=== PATIENT | female | born 1965 | race Caucasian/White ===

== ENCOUNTER 2020-07-22 14:40 | Outpatient (REF) | payer MEDICAID, SELFPAY ==
[2020-07-22 15:41] LABS: Glucose Urine UA NEG (NEG); Leukocyte Esterase Urine NEG (NEG); Nitrite Urine NEG (NEG); Urine Blood NEG (NEG); Urine Ketones NEG (NEG); Urine Protein 1+ MG/DL (NEG-TRACE)
[2020-07-22 15:43] LABS: Appearance Urine CLEAR; Color Urine YELLOW
[2020-07-22 15:52] LABS: Bacteria Urine 1+ /LPF; RBC Urine 0 /HPF (0); Squamous Epithelial Cell Urine 1+ /LPF; WBC Urine 0 /HPF (0-4)
== END 2020-07-22 14:41 | disposition home or self-care (01) ==
LOC: HO.LAB 14:40
PROVIDERS: PCP Family Medicine; Visit Provider Urology
DX: N39.0 Urinary tract infection, site not specified (principal)
CPT/HCPCS: 81001; 87086

== ENCOUNTER → 2021-01-18 14:24 | Outpatient (BNVA) | payer MEDICAID, SELFPAY | PROVIDERS: PCP Family Medicine | DX: N39.0 Urinary tract infection, site not specified (principal) | CPT/HCPCS: 99212 ==

== ENCOUNTER → 2021-01-19 10:26 | Outpatient (BNVA) | payer MEDICAID, SELFPAY | PROVIDERS: PCP Family Medicine; Visit Provider Urology ==

== ENCOUNTER → 2021-04-25 13:53 | Outpatient (BNVA) | payer MEDICAID, SELFPAY | PROVIDERS: PCP Internal Medicine | DX: N39.0 Urinary tract infection, site not specified (principal); Z90.5 Acquired absence of kidney | CPT/HCPCS: 99212 ==

== ENCOUNTER 2021-05-23 10:28 | Outpatient (REF) | payer MEDICAID, SELFPAY ==
--- NOTE | ~2021-05-23 | US_ITS ---
EXAMINATION: US RETROPERITONEAL LIMITED (RENAL ONLY) CLINICAL INFORMATION: Acquired absence of kidney. COMPARISON: CT abdomen and pelvis 09/21/2019. TECHNIQUE: Real-time imaging of the kidneys. FINDINGS: RIGHT KIDNEY: 10.2 x 5.5 x 5.5 cm (SAG x AP x TRV). The kidney is normal in size and echogenicity. The contour of the right kidney appears slightly lobulated. Renal cortical thickness is normal. There are small echogenic foci questionable for tiny stones. No focal parenchymal lesions. No hydronephrosis. LEFT KIDNEY: Surgically absent. US/US renal BI IMPRESSION: Echogenic foci in the right kidney, question representing tiny stones.
== END 2021-05-23 10:29 | disposition home or self-care (01) ==
LOC: HO.US 10:28
DX: N39.0 Urinary tract infection, site not specified (principal); Z90.5 Acquired absence of kidney
CPT/HCPCS: 76775

== ENCOUNTER → 2021-06-26 13:06 | Outpatient (BNVA) | payer MEDICAID, SELFPAY | PROVIDERS: PCP Internal Medicine | DX: Z13.89 Encounter for screening for other disorder (principal) ==

== ENCOUNTER 2022-01-05 14:01 | Outpatient (REF) | payer MEDICAID, SELFPAY ==
--- NOTE | ~2022-01-05 | US_ITS ---
EXAMINATION: US RETROPERITONEAL LIMITED (RENAL ONLY) CLINICAL INFORMATION: Calculus of kidney. COMPARISON: Ultrasound retroperitoneal limited (renal only) 05/23/2021. CT abdomen and pelvis without contrast 09/21/2019. TECHNIQUE: Real-time imaging of the kidneys. FINDINGS: RIGHT KIDNEY: 10.9 x 6.3 x 4.9 cm (SAG x AP x TRV). The kidney is normal in size, contour, and echogenicity. Renal cortical thickness is normal. No focal parenchymal lesions. There is a 5 x 2 mm echogenic focus seen within the midpole which may represent vessel wall artifact versus nonobstructing calculus. LEFT KIDNEY: Surgically absent. US/US renal BI IMPRESSION: Question nonobstructing right renal calculus measuring 5 mm in largest dimension versus vessel interface artifact. No evidence of obstructive uropathy.
== END 2022-01-05 14:02 | disposition home or self-care (01) ==
LOC: HO.US 14:01
DX: N20.0 Calculus of kidney (principal); Z90.5 Acquired absence of kidney
CPT/HCPCS: 76775

== ENCOUNTER 2022-01-23 17:09 | Outpatient (REF) | payer MEDICAID, SELFPAY | END 2022-01-23 17:10 | disposition home or self-care (01) | LOC: HO.LAB 17:09 | PROVIDERS: PCP Family Medicine; Visit Provider Urology | DX: Z13.89 Encounter for screening for other disorder (principal) | CPT/HCPCS: 81001; 87086 ==

== ENCOUNTER 2022-02-01 17:47 | Outpatient (REF) | payer MEDICAID, SELFPAY ==
[2022-02-01 17:55] LABS: Appearance Urine Cloudy; Color Urine Yellow; Glucose Urine UA Negative (Negative); Leukocyte Esterase Urine Negative (Negative); Nitrite Urine Negative (Negative); UMIC TRIGGER UA YES; Urine Blood Negative (Negative); Urine Ketones Negative (Negative); Urine Protein 30 (1+) mg/dL (Neg-Trace)
[2022-02-01 18:06] LABS: Bacteria Urine None Seen (None Seen); Hyaline Casts Urine 0-2 /LPF (0-2); RBC Urine 0-2 /HPF (0-2); Squamous Epithelial Cell Urine >20 /HPF (0-2); WBC Urine 0-5 /HPF (0-5)
== END 2022-02-01 17:48 | disposition home or self-care (01) ==
LOC: HO.LNP 17:47
PROVIDERS: Visit Provider Urology
DX: N39.0 Urinary tract infection, site not specified (principal)
CPT/HCPCS: 81001; 87086

== ENCOUNTER 2022-03-09 | Outpatient (REF) | payer MEDICAID, SELFPAY ==
[2022-03-09 17:39] LABS: Appearance Urine Clear; Color Urine Yellow; Glucose Urine UA Negative (Negative); Leukocyte Esterase Urine Trace (Negative); Nitrite Urine Negative (Negative); PH 6.5 (5.0-9.0); Specific Gravity - Urine 1.015 (1.005-1.025); UMIC TRIGGER UA YES; Urine Blood Negative (Negative); Urine Ketones Negative (Negative); Urine Protein 30 (1+) mg/dL (Neg-Trace)
[2022-03-09 17:41] LABS: Bacteria Urine 3+ (None Seen); Hyaline Casts Urine 0-2 /LPF (0-2); RBC Urine 0-2 /HPF (0-2); WBC Urine 0-5 /HPF (0-5)
== END 2022-03-09 00:01 | disposition home or self-care (01) ==
LOC: HO.LNP
PROVIDERS: Visit Provider Urology
DX: N39.0 Urinary tract infection, site not specified (principal)
CPT/HCPCS: 81001; 87086; 87088; 87186

== ENCOUNTER → 2022-03-27 13:41 | Outpatient (BNVA) | payer MEDICAID, SELFPAY | PROVIDERS: PCP Family Medicine; Visit Provider Urology | DX: Z13.89 Encounter for screening for other disorder (principal) ==

== ENCOUNTER → 2022-04-10 13:38 | Outpatient (BNVA) | payer MEDICAID, SELFPAY | PROVIDERS: PCP Family Medicine; Visit Provider Urology | DX: Z13.89 Encounter for screening for other disorder (principal) ==

== ENCOUNTER 2022-04-18 11:05 | Outpatient (REF) | payer MEDICAID, SELFPAY | END 2022-04-18 11:06 | disposition home or self-care (01) | LOC: HO.LAB 11:05 | PROVIDERS: Absent Provider Urology; PCP Family Medicine; Visit Provider Internal Medicine | DX: A49.9 Bacterial infection, unspecified (principal); N39.0 Urinary tract infection, site not specified; Z16.12 Extended spectrum beta lactamase (ESBL) resistance | CPT/HCPCS: 87086; 87088; 87186; 99202 ==

== ENCOUNTER 2022-04-30 12:41 | Emergency (ER) | payer MEDICAID, SELFPAY ==
[2022-04-30 12:49] VITALS: BP 161/112; PULSE 110; RESP 18; TEMP 37; O2SAT 98; BMI 32.9
--- NOTE | 2022-04-30 12:50 | ECG_ITS ---
Test Reason : TACHYCARDIA Blood Pressure : / mmHG Vent. Rate : 100 BPM Atrial Rate : 100 BPM P-R Int : 124 ms QRS Dur : 080 ms QT Int : 338 ms P-R-T Axes : 025 -12 003 degrees QTc Int : 436 ms Normal sinus rhythm Minimal voltage criteria for LVH, may be normal variant ( R in aVL ) Borderline ECG No previous ECGs available Referred By: Amy Jones Electronically Signed By:LAITH TELLO MD
--- NOTE | 2022-04-30 12:51 | ED.FEMALEGU ---
HPI - Female Genitourinary General Chief complaint: General Medical <LAINEY Perez - Last Filed: 04/30/22 12:56> Stated complaint: kidney infection <LAINEY Perez - Last Filed: 04/30/22 12:56> Time Seen by Provider: 04/30/22 18:29 <LAINEY Perez - Last Filed: 04/30/22 12:56> Source: patient <Tyra García MD - Last Filed: 04/30/22 22:05> Mode of arrival: ambulatory <Tyra García MD - Last Filed: 04/30/22 22:05> History of Present Illness HPI Narrative: 56-year-old female with history of 1 kidney and reports that she was diagnosed with a kidney infection approximately 2 weeks ago and had been directed by Urology as well as Infectious Disease specialist to follow-up here in the hospital for IV antibiotics but patient states that she was unable to make the appointment due to a car breakdown. She now states that she is presenting for the antibiotics but otherwise denies any fever, chills. <Tyra García MD - Last Filed: 04/30/22 22:05> Related Data Home medications: Home Medications Medication Instructions Recorded Confirmed amlodipine 5 mg tablet 5 mg PO DAILY 01/18/21 conj estrogen-medroxyprogesterone 1 tab PO DAILY 01/18/21 0.625 mg-2.5 mg tablet (Prempro) dextroamphetamine-amphetamine 20 1 tab PO BID 01/18/21 mg tablet fluticasone propionate 50 1 spray intranasal DAILY 01/18/21 mcg/actuation nasal spray,suspension paroxetine HCl 40 mg tablet 40 mg PO DAILY 01/18/21 hydroxychloroquine 200 mg tablet 200 mg PO BID 04/25/21 lidocaine 5 % topical patch 2 patch topical 04/25/21 oxycodone 10 mg tablet 10 mg PO TID 04/25/21 paroxetine HCl 30 mg tablet 60 mg PO DAILY 04/25/21 cholecalciferol (vitamin D3) 25 25 mcg PO DAILY 06/26/21 mcg (1,000 unit) capsule colchicine 0.6 mg tablet 0.6 mg PO DAILY 06/26/21 lisinopril 20 mg tablet 20 mg PO DAILY 06/26/21 omeprazole 20 mg capsule,delayed 20 mg PO BID 06/26/21 release pravastatin 40 mg tablet 40 mg PO DAILY 06/26/21 sodium bicarbonate 650 mg tablet 0 mg PO BID 06/26/21 trazodone 50 mg tablet 0 mg PO 06/26/21 Previous Rx's Medication Instructions Recorded ondansetron HCl 4 mg tablet 4 mg PO Q8H 5 days #15 tabs 01/26/20 (Zofran) ondansetron HCl 4 mg tablet 4 mg PO Q8H PRN nausea and 06/10/20 (Zofran) vomiting #6 tabs amoxicillin 875 mg-potassium 1 tab PO TID 6 days #18 tabs 02/27/22 clavulanate 125 mg tablet fosfomycin tromethamine 3 gram 1 packet PO Q3D 2 doses #2 ea 03/12/22 oral packet fosfomycin tromethamine 3 gram 3 g PO Q2D 12 days #6 packets 03/27/22 oral packet fosfomycin tromethamine 3 gram 1 packet PO ONCE 1 day #1 ea 04/30/22 oral packet <LAINEY Perez - Last Filed: 04/30/22 12:56> Allergies/Adverse reactions: Allergies Allergy/AdvReac Type Severity Reaction Status Date / Time methadone [METHADONE] Allergy Unknown RASH Verified 04/30/22 20:44 pentazocine [From [facility]ALWIN] AdvReac Unknown N/V Verified 04/30/22 20:44 1-Step Allergy Unknown Unknown Uncoded 04/18/22 11:23 <LAINEY Perez - Last Filed: 04/30/22 12:56> Review of Systems Review of Systems: Pertinent positives and negatives as stated in HPI <Tyra García MD - Last Filed: 04/30/22 22:05> PMFSH Past Medical History Source: nursing notes reviewed <Tyra García MD - Last Filed: 04/30/22 22:05> Medical History: Medical History Fibromyalgia Hypertension Renal calculi Solitary kidney, acquired <LAINEY Perez - Last Filed: 04/30/22 12:56> Social History Social History: Social History Alcohol intake: never Smoked in Last 30 Days: No Use of substances other than those prescribed or required for medical reasons: No Advance Directives: No Advance Directives Information Provided: Yes Patient : No <LAINEY Perez - Last Filed: 04/30/22 12:56> Physical Exam Vital Signs: Vital Signs: Last Vital Signs Temp 98.4 F 04/30/22 20:36 Pulse 100 04/30/22 20:27 Resp 17 04/30/22 20:27 BP 170/96 H 04/30/22 20:27 Pulse Ox 100 04/30/22 20:27 O2 Del Method 04/30/22 20:27 BMI result Body Mass Index 32.9 <LAINEY Perez - Last Filed: 04/30/22 12:56> Vital Signs: Last Vital Signs Temp 98.4 F 04/30/22 20:36 Pulse 100 04/30/22 20:27 Resp 17 04/30/22 20:27 BP 170/96 H 04/30/22 20:27 Pulse Ox 100 04/30/22 20:27 O2 Del Method 04/30/22 20:27 BMI result Body Mass Index 32.9 VITAL SIGNS: Reviewed. GENERAL: Well developed, well nourished, in no acute distress. HEAD: Normocephalic/atraumatic EYES: PERRLA, EOMI LUNGS: Normal breath sounds. No adventitious sounds or accessory muscle use. SpO2<100> CARDIOVASCULAR: Regular rate and rhythm without noted murmurs ABDOMEN: Soft, non-tender, non-distended with bowel sounds. MUSCULOSKELETAL: No tenderness, deformities, or effusions noted on gross inspection. EXTREMITIES: No cyanosis, clubbing or edema. SKIN: Inspection of the skin reveals no rashes NEUROLOGIC: Alert and oriented x 4. Strength and sensation to light touch were grossly intact x 4. <Tyra García MD - Last Filed: 04/30/22 22:05> Course Course Course Narrative: RME - 56 yo F, hx of ESBL E.coli on 04/18 sensitive only to ertapenem and gentamicin with solitary kidney, mcc UTIs with resistant organisms, hypertension, and renal calculi, presenting today with complaints of ongoing UTI infection. She has been followed by Dr. Andre, but has been unable to get antibiotics due to transportation problems. Patient is tachycardic to the 120s but is afebrile. Plan:Labs ordered. Patient is stable to return to the waiting room until treatment room becomes available. <LAINEY Perez - Last Filed: 04/30/22 12:56> Medications Administered Generic Name Dose Route Start Last Admin Trade Name Freq PRN Reason Stop Dose Admin Sodium Chloride 2,000 mls @ 999 mls/hr 04/30/22 20:30 04/30/22 20:53 Ns IV 04/30/22 22:30 999 mls/hr .Q2H1M JENNY Administration Discontinued Medications Generic Name Dose Route Start Last Admin Trade Name Freq PRN Reason Stop Dose Admin Ertapenem 1 gm/ Sodium 50 mls @ 100 mls/hr 04/30/22 20:40 04/30/22 21:48 Chloride IV 04/30/22 21:09 Infused ONCE ONE Infusion <LAINEY Perez - Last Filed: 04/30/22 12:56> Medications Administered Generic Name Dose Route Start Last Admin Trade Name Freq PRN Reason Stop Dose Admin Sodium Chloride 2,000 mls @ 999 mls/hr 04/30/22 20:30 04/30/22 20:53 Ns IV 04/30/22 22:30 999 mls/hr .Q2H1M JENNY Administration Discontinued Medications Generic Name Dose Route Start Last Admin Trade Name Freq PRN Reason Stop Dose Admin Ertapenem 1 gm/ Sodium 50 mls @ 100 mls/hr 04/30/22 20:40 04/30/22 21:48 Chloride IV 04/30/22 21:09 Infused ONCE ONE Infusion <Tyra García MD - Last Filed: 04/30/22 22:05> Medical Decision Making Medical Decision Making MDM Narrative: This is a 56-year-old female who presents for IV antibiotics, I reviewed her documentation both by Dr. Desouza as well as the infectious disease specialist, Dr Dahl. The latter specialist has recommended that patient should be treated with fosfomycin and that she can follow-up as outpatient as long she is afebrile. I reviewed all investigations and my interpretation is that this patient has COVID-19, she did receive 1 dose of ertapenem as the urinary tract infection sensitivities on review of microbiology results indicated that there was sensitivity to the ertapenem. Patient will be discharged with the fosfomycin to take at home and provided with referrals to follow-up with Dr. Desouza. Patient is otherwise afebrile, comfortable and appears well. <Tyra García MD - Last Filed: 04/30/22 22:05> Differential Diagnosis Please see the discussion above <Tyra García MD - Last Filed: 04/30/22 22:05> Consult Healthcare Provider Management of the patient was discussed with: Multiple Spindle Router Operator <Tyra García MD - Last Filed: 04/30/22 22:05> 2155: I discussed the case extensively with Dr Dahl, who recommends fosfomycin and outpatient follow-up. <Tyra García MD - Last Filed: 04/30/22 22:05> Lab Data Please see the discussion above <Tyra García MD - Last Filed: 04/30/22 22:05> Result Diagrams: 04/30/22 13:21 04/30/22 13:21 <LAINEY Perez - Last Filed: 04/30/22 12:56> Labs: Lab Results 04/30/22 04/30/22 04/30/22 Range/Units 13:21 13:21 13:21 WBC 5.3 (4.8-10.8) X10*3/uL RBC 3.48 L (4.20-5.50) X10*6/uL Hgb 10.8 L (12.0-16.0) g/dl Hct 32.7 L (37.0-47.0) % MCV 94.0 (80.0-98.0) fL MCH 31.0 (27.0-33.0) pg MCHC 33.0 (31.0-35.0) g/dl RDW 14.6 (11.0-16.0) % Plt Count 289 (160-400) X10*3/uL MPV 10.7 (9.4-12.3) fL Immature Gran % (Auto) 0.2 (0.0-0.4) % Neut % (Auto) 58.6 (45-73) % Lymph % (Auto) 28.2 (20-40) % [place] % (Auto) 11.1 H (2-11) % Eos % (Auto) 1.7 (0-4) % Baso % (Auto) 0.2 (0-2) % Lymph # (Auto) 1.5 (1.2-4.9) X10*3/uL [place] # (Auto) 0.6 (0.1-1.2) X10*3/uL Eos # (Auto) 0.1 (0.0-0.4) X10*3/uL Baso # (Auto) 0.0 (0.0-0.2) X10*3/uL Abs Immat Gran (auto) 0.01 (0.00-0.03) X10*3/uL Absolute Neuts (auto) 3.1 (2.0-8.3) x10*3/uL Absolute Nucleated RBC 0.000 (0.0-0.012) X10*3/uL Nucleated RBC % (auto) 0.0 (0.0-0.2) /100WBC Sodium 138 (135-145) mmol/L Potassium 5.0 (3.3-5.1) mmol/L Chloride 108 (96-108) mmol/L Carbon Dioxide 20 L (22-29) mmol/L Anion Gap 15 (12-20) BUN 24 H (9-16) mg/dL Creatinine 1.62 H (0.5-1.4) mg/dL Estim Creat Clear Calc 37.4 Estimated GFR 33 Random Glucose 96 (60-115) mg/dL Lactic Acid 2.0 (0.5-2.0) mmol/L Calcium 9.3 (8.4-10.2) mg/dL Magnesium 1.4 L* (1.6-2.6) mg/dL Total Bilirubin 0.5 (0.0-1.0) mg/dL Direct Bilirubin 0.2 (0.0-0.5) mg/dL AST 74 H (5-31) U/L ALT 58 H (0-31) U/L Alkaline Phosphatase 105 (39-117) U/L Total Protein 8.6 H (6.5-8.0) g/dL Albumin 4.5 (3.5-5.0) g/dL Urine Color Urine Appearance Urine pH (5.0-9.0) Ur Specific [place] (1.005-1.025) Urine Protein (Neg-Trace) mg/dL Urine Glucose (UA) (Negative) mg/dL Urine Ketones (Negative) mg/dL Urine Blood (Negative) Urine Nitrite (Negative) Ur Leukocyte Esterase (Negative) Urine RBC (0-2) /HPF Urine WBC (0-5) /HPF Ur Squamous Epith Cells (0-2) /HPF Urine Bacteria (None Seen) Hyaline Casts (0-2) /LPF COVID-19 (ELENA) (Negative) COVID-19 Clin Com 04/30/22 04/30/22 04/30/22 Range/Units 13:21 20:30 20:31 WBC (4.8-10.8) X10*3/uL RBC (4.20-5.50) X10*6/uL Hgb (12.0-16.0) g/dl Hct (37.0-47.0) % MCV (80.0-98.0) fL MCH (27.0-33.0) pg MCHC (31.0-35.0) g/dl RDW (11.0-16.0) % Plt Count (160-400) X10*3/uL MPV (9.4-12.3) fL Immature Gran % (Auto) (0.0-0.4) % Neut % (Auto) (45-73) % Lymph % (Auto) (20-40) % [place] % (Auto) (2-11) % Eos % (Auto) (0-4) % Baso % (Auto) (0-2) % Lymph # (Auto) (1.2-4.9) X10*3/uL [place] # (Auto) (0.1-1.2) X10*3/uL Eos # (Auto) (0.0-0.4) X10*3/uL Baso # (Auto) (0.0-0.2) X10*3/uL Abs Immat Gran (auto) (0.00-0.03) X10*3/uL Absolute Neuts (auto) (2.0-8.3) x10*3/uL Absolute Nucleated RBC (0.0-0.012) X10*3/uL Nucleated RBC % (auto) (0.0-0.2) /100WBC Sodium (135-145) mmol/L Potassium (3.3-5.1) mmol/L Chloride (96-108) mmol/L Carbon Dioxide (22-29) mmol/L Anion Gap (12-20) BUN (9-16) mg/dL Creatinine (0.5-1.4) mg/dL Estim Creat Clear Calc Estimated GFR Random Glucose (60-115) mg/dL Lactic Acid 1.6 (0.5-2.0) mmol/L Calcium (8.4-10.2) mg/dL Magnesium (1.6-2.6) mg/dL Total Bilirubin (0.0-1.0) mg/dL Direct Bilirubin (0.0-0.5) mg/dL AST (5-31) U/L ALT (0-31) U/L Alkaline Phosphatase (39-117) U/L Total Protein (6.5-8.0) g/dL Albumin (3.5-5.0) g/dL Urine Color Yellow Urine Appearance Cloudy Urine pH 6.0 (5.0-9.0) Ur Specific [place] 1.020 (1.005-1.025) Urine Protein >=1000 (4+) H (Neg-Trace) mg/dL Urine Glucose (UA) Negative (Negative) mg/dL Urine Ketones Negative (Negative) mg/dL Urine Blood Small (1+) H (Negative) Urine Nitrite Negative (Negative) Ur Leukocyte Esterase Moderate (2+) H (Negative) Urine RBC 0-2 (0-2) /HPF Urine WBC >50 H (0-5) /HPF Ur Squamous Epith Cells 0-2 (0-2) /HPF Urine Bacteria 4+ (None Seen) Hyaline Casts 0-2 (0-2) /LPF COVID-19 (ELENA) Positive A (Negative) COVID-19 Clin Com See Note <LAINEY Perez - Last Filed: 04/30/22 12:56> Lab Results 04/30/22 04/30/22 04/30/22 Range/Units 13:21 13:21 13:21 WBC 5.3 (4.8-10.8) X10*3/uL RBC 3.48 L (4.20-5.50) X10*6/uL Hgb 10.8 L (12.0-16.0) g/dl Hct 32.7 L (37.0-47.0) % MCV 94.0 (80.0-98.0) fL MCH 31.0 (27.0-33.0) pg MCHC 33.0 (31.0-35.0) g/dl RDW 14.6 (11.0-16.0) % Plt Count 289 (160-400) X10*3/uL MPV 10.7 (9.4-12.3) fL Immature Gran % (Auto) 0.2 (0.0-0.4) % Neut % (Auto) 58.6 (45-73) % Lymph % (Auto) 28.2 (20-40) % [place] % (Auto) 11.1 H (2-11) % Eos % (Auto) 1.7 (0-4) % Baso % (Auto) 0.2 (0-2) % Lymph # (Auto) 1.5 (1.2-4.9) X10*3/uL [place] # (Auto) 0.6 (0.1-1.2) X10*3/uL Eos # (Auto) 0.1 (0.0-0.4) X10*3/uL Baso # (Auto) 0.0 (0.0-0.2) X10*3/uL Abs Immat Gran (auto) 0.01 (0.00-0.03) X10*3/uL Absolute Neuts (auto) 3.1 (2.0-8.3) x10*3/uL Absolute Nucleated RBC 0.000 (0.0-0.012) X10*3/uL Nucleated RBC % (auto) 0.0 (0.0-0.2) /100WBC Sodium 138 (135-145) mmol/L Potassium 5.0 (3.3-5.1) mmol/L Chloride 108 (96-108) mmol/L Carbon Dioxide 20 L (22-29) mmol/L Anion Gap 15 (12-20) BUN 24 H (9-16) mg/dL Creatinine 1.62 H (0.5-1.4) mg/dL Estim Creat Clear Calc 37.4 Estimated GFR 33 Random Glucose 96 (60-115) mg/dL Lactic Acid 2.0 (0.5-2.0) mmol/L Calcium 9.3 (8.4-10.2) mg/dL Magnesium 1.4 L* (1.6-2.6) mg/dL Total Bilirubin 0.5 (0.0-1.0) mg/dL Direct Bilirubin 0.2 (0.0-0.5) mg/dL AST 74 H (5-31) U/L ALT 58 H (0-31) U/L Alkaline Phosphatase 105 (39-117) U/L Total Protein 8.6 H (6.5-8.0) g/dL Albumin 4.5 (3.5-5.0) g/dL Urine Color Urine Appearance Urine pH (5.0-9.0) Ur Specific [place] (1.005-1.025) Urine Protein (Neg-Trace) mg/dL Urine Glucose (UA) (Negative) mg/dL Urine Ketones (Negative) mg/dL Urine Blood (Negative) Urine Nitrite (Negative) Ur Leukocyte Esterase (Negative) Urine RBC (0-2) /HPF Urine WBC (0-5) /HPF Ur Squamous Epith Cells (0-2) /HPF Urine Bacteria (None Seen) Hyaline Casts (0-2) /LPF COVID-19 (ELENA) (Negative) COVID-19 Clin Com 04/30/22 04/30/22 04/30/22 Range/Units 13:21 20:30 20:31 WBC (4.8-10.8) X10*3/uL RBC (4.20-5.50) X10*6/uL Hgb (12.0-16.0) g/dl Hct (37.0-47.0) % MCV (80.0-98.0) fL MCH (27.0-33.0) pg MCHC (31.0-35.0) g/dl RDW (11.0-16.0) % Plt Count (160-400) X10*3/uL MPV (9.4-12.3) fL Immature Gran % (Auto) (0.0-0.4) % Neut % (Auto) (45-73) % Lymph % (Auto) (20-40) % [place] % (Auto) (2-11) % Eos % (Auto) (0-4) % Baso % (Auto) (0-2) % Lymph # (Auto) (1.2-4.9) X10*3/uL [place] # (Auto) (0.1-1.2) X10*3/uL Eos # (Auto) (0.0-0.4) X10*3/uL Baso # (Auto) (0.0-0.2) X10*3/uL Abs Immat Gran (auto) (0.00-0.03) X10*3/uL Absolute Neuts (auto) (2.0-8.3) x10*3/uL Absolute Nucleated RBC (0.0-0.012) X10*3/uL Nucleated RBC % (auto) (0.0-0.2) /100WBC Sodium (135-145) mmol/L Potassium (3.3-5.1) mmol/L Chloride (96-108) mmol/L Carbon Dioxide (22-29) mmol/L Anion Gap (12-20) BUN (9-16) mg/dL Creatinine (0.5-1.4) mg/dL Estim Creat Clear Calc Estimated GFR Random Glucose (60-115) mg/dL Lactic Acid 1.6 (0.5-2.0) mmol/L Calcium (8.4-10.2) mg/dL Magnesium (1.6-2.6) mg/dL Total Bilirubin (0.0-1.0) mg/dL Direct Bilirubin (0.0-0.5) mg/dL AST (5-31) U/L ALT (0-31) U/L Alkaline Phosphatase (39-117) U/L Total Protein (6.5-8.0) g/dL Albumin (3.5-5.0) g/dL Urine Color Yellow Urine Appearance Cloudy Urine pH 6.0 (5.0-9.0) Ur Specific [place] 1.020 (1.005-1.025) Urine Protein >=1000 (4+) H (Neg-Trace) mg/dL Urine Glucose (UA) Negative (Negative) mg/dL Urine Ketones Negative (Negative) mg/dL Urine Blood Small (1+) H (Negative) Urine Nitrite Negative (Negative) Ur Leukocyte Esterase Moderate (2+) H (Negative) Urine RBC 0-2 (0-2) /HPF Urine WBC >50 H (0-5) /HPF Ur Squamous Epith Cells 0-2 (0-2) /HPF Urine Bacteria 4+ (None Seen) Hyaline Casts 0-2 (0-2) /LPF COVID-19 (ELENA) Positive A (Negative) COVID-19 Clin Com See Note <Tyra García MD - Last Filed: 04/30/22 22:05> Independent Interpretation I performed an independent interpretation of an: EKG <Tyra García MD - Last Filed: 04/30/22 22:05> Interpretation: Normal sinus rhythm, HR-100, no STEMI, KS/QRS/QTC are within normal limits. <Tyra García MD - Last Filed: 04/30/22 22:05> Chronic Conditions Patient?s care impacted by: Other <Tyra García MD - Last Filed: 04/30/22 22:05> One kidney, <Tyra García MD - Last Filed: 04/30/22 22:05> Discharge Plan Discharge Clinical Impression: ESBL (extended spectrum beta-lactamase) producing bacteria infection, Lab test positive for detection of COVID-19 virus <LAINEY Perez - Last Filed: 04/30/22 12:56> Patient Disposition: Home, Self-Care <LAINEY Perez - Last Filed: 04/30/22 12:56> Instructions: Urinary Tract Infection in Women (ED), COVID-19 (Coronavirus Disease 2019) (ED) <LAINEY Perez - Last Filed: 04/30/22 12:56> Additional Instructions: 1. You have been provided with a prescription for fosfomycin and should take this medication. It is a 1 time dose. 2. You have been provided with referrals to both the infectious disease specialist as well as Dr. Andre your urologist. You have been diagnosed with COVID-19 and must isolate for the next 5 days. This does not prevent you from interacting with your physicians through telemedicine appointments. Return for any worsening of symptoms. <LAINEY Perez - Last Filed: 04/30/22 12:56> Prescriptions: New fosfomycin tromethamine 3 gram packet 1 packet PO ONCE 1 Days Qty: 1 0RF No Action ondansetron HCl [Zofran] 4 mg tablet 4 mg PO Q8H 5 Days Qty: 15 0RF ondansetron HCl [Zofran] 4 mg tablet 4 mg PO Q8H PRN (Reason: nausea and vomiting) Qty: 6 0RF amoxicillin-pot clavulanate 875-125 mg tablet 1 tab PO TID 6 Days Qty: 18 0RF fosfomycin tromethamine 3 gram packet 1 packet PO Q3D Qty: 2 1RF fosfomycin tromethamine 3 gram packet 3 g PO Q2D 12 Days Qty: 6 0RF Rx Instructions: Take one packet every 2 days mixed with water for 6 doses dextroamphetamine-amphetamine 20 mg tablet 1 tab PO BID Prempro 0.625-2.5 mg tablet 1 tab PO DAILY fluticasone propionate 50 mcg/actuation spray,suspension 1 spray intranasal DAILY amlodipine 5 mg tablet 5 mg PO DAILY paroxetine HCl 40 mg tablet 40 mg PO DAILY oxycodone 10 mg tablet 10 mg PO TID hydroxychloroquine 200 mg tablet 200 mg PO BID paroxetine HCl 30 mg tablet 60 mg PO DAILY lidocaine 5 % adhesive patch,medicated 2 patch topical trazodone 50 mg tablet 0 mg PO pravastatin 40 mg tablet 40 mg PO DAILY lisinopril 20 mg tablet 20 mg PO DAILY sodium bicarbonate 650 mg tablet 0 mg PO BID omeprazole 20 mg capsule,delayed release(DR/EC) 20 mg PO BID colchicine 0.6 mg tablet 0.6 mg PO DAILY cholecalciferol (vitamin D3) 25 mcg (1,000 unit) capsule 25 mcg PO DAILY <LAINEY Perez - Last Filed: 04/30/22 12:56> Referrals: Katie Dahl MD [Physician] - Danisha Erazo MD [Primary Care Provider] - Mac Desouza MD [Physician] - <LAINEY Perez - Last Filed: 04/30/22 12:56>
[2022-04-30 13:26] LABS: MANUAL DIFF FLAG NO
[2022-04-30 13:28] LABS: Basophils Percent Auto 0.2 % (0-2); Eosinophils Absolute Auto 0.1 X10*3/uL (0.0-0.4); Eosinophils Percent Auto 1.7 % (0-4); Hematocrit 32.7 % (37.0-47.0); Hemoglobin 10.8 g/dl (12.0-16.0); Imm Gran Abs Auto 0.01 X10*3/uL (0.00-0.03); Imm Gran Pct Auto 0.2 % (0.0-0.4); Lymphocytes Absolute Auto 1.5 X10*3/uL (1.2-4.9); Lymphocytes Percent Auto 28.2 % (20-40); Mean Platelet Volume 10.7 fL (9.4-12.3); Monocytes Absolute Auto 0.6 X10*3/uL (0.1-1.2); Monocytes Percent Auto 11.1 % (2-11); Neutrophils Absolute Auto 3.1 x10*3/uL (2.0-8.3); Neutrophils Percent Auto 58.6 % (45-73); Platelet Count 289 X10*3/uL (160-400); Red Blood Count 3.48 X10*6/uL (4.20-5.50); Red Cell Distribution Width 14.6 % (11.0-16.0); White Blood Count 5.3 X10*3/uL (4.8-10.8)
[2022-04-30 13:42] LABS: COVID-19 Test Positive (Negative); IDNOW Serial# BCCEAD1C
[2022-04-30 13:47] LABS: Alanine Aminotransferase 58 U/L (0-31); Albumin Level 4.5 g/dL (3.5-5.0); Alkaline Phosphatase 105 U/L (39-117); Anion Gap 15 (12-20); Aspartate Amino Transferase 74 U/L (5-31); Bilirubin Direct 0.2 mg/dL (0.0-0.5); Bilirubin Total 0.5 mg/dL (0.0-1.0); Blood Urea Nitrogen 24 mg/dL (9-16); Calcium 9.3 mg/dL (8.4-10.2); Carbon Dioxide 20 mmol/L (22-29); Chloride 108 mmol/L (96-108); Creatinine Clr Calc Pharmacy 37.4; Estimated Glomerular Filt Rate 33; Glucose Random 96 mg/dL (60-115); Magnesium 1.4 mg/dL (1.6-2.6); Sodium 138 mmol/L (135-145); Total Protein 8.6 g/dL (6.5-8.0)
[2022-04-30 20:27] VITALS: BP 170/96; PULSE 100; RESP 17; O2SAT 100
[2022-04-30 20:36] VITALS: TEMP 36.9
[2022-04-30 20:42] LABS: Appearance Urine Cloudy; Color Urine Yellow; Glucose Urine UA Negative (Negative); Leukocyte Esterase Urine Moderate (2+) (Negative); Nitrite Urine Negative (Negative); UMIC TRIGGER UACC YES; Urine Blood Small (1+) (Negative); Urine Ketones Negative (Negative); Urine Protein >=1000 (4+) mg/dL (Neg-Trace)
[2022-04-30] MEDS: Ertapenem Sodium 1 GM in 0.9 % Sodium Chloride 50 ML IV (20:50)
[2022-04-30] MEDS: 0.9 % Sodium Chloride 2,000 ML 999 ML IV (20:53)
--- NOTE | 2022-04-30 20:56 | PC.NURSE ---
This fiction and nonfiction prose writer assumed care of this Pt at 1900. Pt A&Ox4, reports 10/10 chronic all over body pain, N/D. IV line placed, blood cultures collected and sent to lab, urine sample collected and sent to lab, meds given as documented.
[2022-04-30 20:59] LABS: Bacteria Urine 4+ (None Seen); Hyaline Casts Urine 0-2 /LPF (0-2); RBC Urine 0-2 /HPF (0-2); Squamous Epithelial Cell Urine 0-2 /HPF (0-2); UACC Culture Trigger YES; WBC Urine >50 /HPF (0-5)
[2022-04-30 21:12] LABS: Lactic Acid 1.6 mmol/L (0.5-2.0)
[2022-04-30] MEDS: ondansetron HCL 4 MG/2 ML VIAL IVPUSH (22:02)
== END 2022-04-30 22:18 | disposition home or self-care (01) ==
PROVIDERS: Physician Assistant; Emergency Provider Student in an Organized Health Care Education/Training Program; PCP Family Medicine
DX: U07.1 COVID-19 (principal); N39.0 Urinary tract infection, site not specified; A49.9 Bacterial infection, unspecified; Z90.5 Acquired absence of kidney; Z79.899 Other long term (current) drug therapy
CPT/HCPCS: 36415; 80048; 80076; 81001; 83605; 83735; 85025; 87040; 87086; 87088; 87186; 87635; 93005; 96365; 99285; J1335; J2405

== ENCOUNTER → 2022-05-02 11:02 | Outpatient (BNVA) | payer MEDICAID, SELFPAY | PROVIDERS: PCP Family Medicine; Visit Provider Urology | DX: Z13.89 Encounter for screening for other disorder (principal) ==

== ENCOUNTER 2022-09-18 13:56 | Emergency (ER) | payer MEDICAID, SELFPAY ==
[2022-09-18 14:04] VITALS: BP 133/80; BP 134/92; PULSE 104; PULSE 95; RESP 18; TEMP 36.9; O2SAT 96; O2SAT 98; BMI 29.0
--- NOTE | 2022-09-18 15:37 | ED_ITS ---
HPI - Overdose General Chief Complaint: Overdose Stated Complaint: overdose on rx oxycodone, narcan given Time Seen by Provider: 09/18/22 14:43 Source: patient and family Mode of arrival: EMS History of Present Illness HPI Narrative: 57-year-old female who has a chronic oxycodone user, has been trialed on Suboxone to wean her off the oxycodone but patient reports she is allergic to both methadone as well as Suboxone at this time and is upset that she is not being given more oxycodone for her fibromyalgia. Patient states that she took a pill that was offered from a friend and was noted to be unresponsive by EMS requiring is bag mask valve ventilation and received 1 mg of IV Narcan. Patient denies suicidal or homicidal ideation. Related Data Home Medications Medication Instructions Recorded Confirmed amlodipine 5 mg tablet 5 mg PO DAILY 01/18/21 05/02/22 conj estrogen-medroxyprogesterone 1 tab PO DAILY 01/18/21 05/02/22 0.625 mg-2.5 mg tablet (Prempro) fluticasone propionate 50 1 spray intranasal DAILY 01/18/21 05/02/22 mcg/actuation nasal spray,suspension paroxetine HCl 40 mg tablet 40 mg PO DAILY 01/18/21 05/02/22 lidocaine 5 % topical patch 2 patch topical 04/25/21 05/02/22 oxycodone 10 mg tablet 10 mg PO TID 04/25/21 05/02/22 cholecalciferol (vitamin D3) 25 25 mcg PO DAILY 06/26/21 05/02/22 mcg (1,000 unit) capsule colchicine 0.6 mg tablet 0.6 mg PO DAILY 06/26/21 05/02/22 lisinopril 20 mg tablet 20 mg PO DAILY 06/26/21 05/02/22 omeprazole 20 mg capsule,delayed 20 mg PO BID 06/26/21 05/02/22 release pravastatin 40 mg tablet 40 mg PO DAILY 06/26/21 05/02/22 sodium bicarbonate 650 mg tablet 0 mg PO BID 06/26/21 05/02/22 ferrous sulfate 325 mg (65 mg 325 mg PO QAM 05/02/22 05/02/22 iron) tablet (FeroSul) lorazepam 1 mg tablet 1 mg PO DAILY 05/02/22 05/02/22 Previous Rx's Medication Instructions Recorded amoxicillin 500 mg-potassium 1 tab PO Q8H 14 days #42 tabs 05/02/22 clavulanate 125 mg tablet (Augmentin) ondansetron HCl 4 mg tablet 4 mg PO Q8H PRN nausea and 05/02/22 vomiting 4 days #10 tabs Allergies Allergy/AdvReac Type Severity Reaction Status Date / Time methadone [METHADONE] Allergy Unknown RASH Verified 05/02/22 11:04 pentazocine [From TALWIN] AdvReac Unknown N/V Verified 05/02/22 11:04 1-Step Allergy Unknown Unknown Uncoded 05/02/22 11:04 Review of Systems Review of Systems: Pertinent positives and negatives as stated in HPI [facility] [place] Past Medical History Source: nursing notes reviewed Medical History Fibromyalgia Hypertension Renal calculi Solitary kidney, acquired Social History Social History Alcohol intake: never Advance Directives: No Advance Directives Information Provided: No Physical Exam Vital Signs: Vital Signs: Last Vital Signs Temp 98.4 F 09/18/22 14:04 Pulse 95 09/18/22 14:04 Resp 18 09/18/22 14:04 BP 133/80 09/18/22 14:04 Pulse Ox 96 09/18/22 14:04 O2 Del Method Room Air 09/18/22 14:04 BMI result Body Mass Index 29.0 VITAL SIGNS: Reviewed. GENERAL: Well developed, well nourished, in no acute distress. HEAD: Normocephalic/atraumatic EYES: PERRLA, EOMI LUNGS: Normal breath sounds. No adventitious sounds or accessory muscle use. SpO2<96> CARDIOVASCULAR: Regular rate and rhythm without noted murmurs ABDOMEN: Soft, non-tender, non-distended with bowel sounds. MUSCULOSKELETAL: No tenderness, deformities, or effusions noted on gross inspection. EXTREMITIES: No cyanosis, clubbing or edema. SKIN: Inspection of the skin reveals no rashes NEUROLOGIC: Alert and oriented x 4. Strength and sensation to light touch were grossly intact x 4. Medical Decision Making Medical Decision Making MDM Narrative: 57-year-old female who arrives with accidental overdose after taking street oxycodone that likely had fentanyl in it. She denies any suicidal or homicidal ideation and expresses significant concerns regarding not being given higher dose of oxycodone by her primary care provider. She will be observed for 2 hours and then discharged with home Narcan. Patient has good follow-up with both her primary care provider, manager chemistry. Differential Diagnosis Differential Diagnoses: The differential diagnosis associated with the presentation includes Please see the discussion above Discharge Plan Discharge Clinical Impression: Accidental overdose Patient Disposition: Home, Self-Care Instructions: Adult Overdose (ED) Additional Instructions: Please follow-up with primary care provider by calling the office in setting up an appointment for re-evaluation. Return to the ER for any worsening symptoms. Prescriptions: No Action ferrous sulfate [FeroSul] 325 mg (65 mg iron) tablet 325 mg PO QAM lorazepam 1 mg tablet 1 mg PO DAILY ondansetron HCl 4 mg tablet 4 mg PO Q8H PRN (Reason: nausea and vomiting) 4 Days Qty: 10 0RF amoxicillin-pot clavulanate [Augmentin] 500-125 mg tablet 1 tab PO Q8H 14 Days Qty: 42 0RF Prempro 0.625-2.5 mg tablet 1 tab PO DAILY fluticasone propionate 50 mcg/actuation spray,suspension 1 spray intranasal DAILY amlodipine 5 mg tablet 5 mg PO DAILY paroxetine HCl 40 mg tablet 40 mg PO DAILY oxycodone 10 mg tablet 10 mg PO TID lidocaine 5 % adhesive patch,medicated 2 patch topical pravastatin 40 mg tablet 40 mg PO DAILY lisinopril 20 mg tablet 20 mg PO DAILY sodium bicarbonate 650 mg tablet 0 mg PO BID omeprazole 20 mg capsule,delayed release(DR/EC) 20 mg PO BID colchicine 0.6 mg tablet 0.6 mg PO DAILY cholecalciferol (vitamin D3) 25 mcg (1,000 unit) capsule 25 mcg PO DAILY
--- NOTE | 2022-09-18 16:38 | HO.SUDE ---
This news writer met with patient to complete SUDE, pt here for overdose. Pt resting in bed. Pt initially denied being at ED for overdose. Pt at times difficult to engage due to minimization. Pt states no hx of overdose, pt reports this is first overdose. Pt states a few months ago, purchased oxy pills from a friend due to increased back pain. Pt reports took Percocet 30mg with good effect. Pt reports it was not until pts PCP, where UDS was obtained that pt learned fentanyl in the pill. Pt reports today, took a few 10mg oxys . This news writer reviewed illicit fentanyl pressed pills, adulterated drug supply, overdose prevention, harm reduction. Pt at first minimizing, with further conversation, pt verbalized understanding that what pt had purchased is not medical grade oxycodone pills. Pt repors no hx of GIANNA treatment. Pt reports no substance use hx. Pt reports 1-2 weeks ago, attempted BUP induction with PCP. Pt states had an adverse reaction on day 8 of taking BUP film. Pt reports took 8mg BUP film and blacked out , pt reports pharmacist reported to pt that there is an ingredient in BUP that pt is allergic too . Pt reports is not interested in MOUD at this time. Pt reports is allergic to MTD. Pt states plans to follow up with PCP, to persue pain management referral. Pt declined recovery supports, pt agreeable to take home narcan, fentanyl test strips provided, pt agreeable to taking Addiction/Recovery team contact information, encouraged to call with any questions/concerns.
== END 2022-09-18 17:31 | disposition home or self-care (01) ==
PROVIDERS: Emergency Provider Student in an Organized Health Care Education/Training Program
DX: T40.2X1A Poisoning by other opioids, accidental (unintentional), initial encounter (principal); Y92.9 Unspecified place or not applicable; Z79.899 Other long term (current) drug therapy
CPT/HCPCS: 99282

== ENCOUNTER 2022-10-20 11:50 | Emergency (ER) | payer OTHER, SELFPAY ==
--- NOTE | 2022-10-20 12:03 | ED_ITS ---
HPI - CPR General Chief Complaint: Cardiac Arrest/CPR Stated Complaint: Cardiac arrest per EMS Source: EMS and old records reviewed Mode of arrival: EMS Limitations: other (ongoing CPR unresponsive) History of Present Illness HPI narrative: 57 yo female with hx of renal calculi, ESBL UTI - was on chronic oxycodone for fibromyalgia but as of note 09/18 it looks like she was being weaned off and didn't like the options of suboxone and methadone - she was seen on 09/18 for overdose (required bagging and 1mg IV narcan by EMS) after buying what she thought was oxycodone but likely had fentanyl in it. Spouse found the patient today after she was left alone for 35 minutes - on their arrival she was unresponsive not breathing and no pulse they worked her for almost 55 minutes prior to coming - asystole/PEA given 6 to 7 rounds of epi, 4mg narcan, BS was 311, calcium chloride and intubated. Patient NEVER had ROSC. On arrival to ED PEA but no pulses felt and she had minimal valve movement on US MD complaint: found unresponsive Onset (ago): unknown Timing confirmed by: other (spouse left her alone approx 35 minutes) Place: home Bystander CPR performed: No AED applied by bystander/certified surgical tech/first assistant: Yes Shock advised: No Initial findings in the field: unresponsive, no pulse and PEA ROSC in the field: No Associated injuries: No Known history of: drug abuse Treatments prior to arrival: intubation, BMV, chest compressions, epinephrine mgs # (7), calcium and other (BS 311, narcan 4mg) Related Data Home Medications Medication Instructions Recorded Confirmed amlodipine 5 mg tablet 5 mg PO DAILY 01/18/21 05/02/22 conj estrogen-medroxyprogesterone 1 tab PO DAILY 01/18/21 05/02/22 0.625 mg-2.5 mg tablet (Prempro) fluticasone propionate 50 1 spray intranasal DAILY 01/18/21 05/02/22 mcg/actuation nasal spray,suspension paroxetine HCl 40 mg tablet 40 mg PO DAILY 01/18/21 05/02/22 lidocaine 5 % topical patch 2 patch topical 04/25/21 05/02/22 oxycodone 10 mg tablet 10 mg PO TID 04/25/21 05/02/22 cholecalciferol (vitamin D3) 25 25 mcg PO DAILY 06/26/21 05/02/22 mcg (1,000 unit) capsule colchicine (gout) 0.6 mg tablet 0.6 mg PO DAILY 06/26/21 05/02/22 lisinopril 20 mg tablet 20 mg PO DAILY 06/26/21 05/02/22 omeprazole 20 mg capsule,delayed 20 mg PO BID 06/26/21 05/02/22 release pravastatin 40 mg tablet 40 mg PO DAILY 06/26/21 05/02/22 sodium bicarbonate 650 mg tablet 0 mg PO BID 06/26/21 05/02/22 ferrous sulfate 325 mg (65 mg 325 mg PO QAM 05/02/22 05/02/22 iron) tablet (FeroSul) lorazepam 1 mg tablet 1 mg PO DAILY 05/02/22 05/02/22 Previous Rx's Medication Instructions Recorded amoxicillin 500 mg-potassium 1 tab PO Q8H 14 days #42 tabs 05/02/22 clavulanate 125 mg tablet (Augmentin) ondansetron HCl 4 mg tablet 4 mg PO Q8H PRN nausea and 05/02/22 vomiting 4 days #10 tabs Allergies Allergy/AdvReac Type Severity Reaction Status Date / Time methadone [METHADONE] Allergy Unknown RASH Verified 05/02/22 11:04 pentazocine [From TALWIN] AdvReac Unknown N/V Verified 05/02/22 11:04 1-Step Allergy Unknown Unknown Uncoded 05/02/22 11:04 Review of Systems Review of Systems: ROS unable to be obtained due to ongoing [facility] Past Medical History Source: old records reviewed Medical History Fibromyalgia Hypertension Renal calculi Solitary kidney, acquired Social History Social History (Updated 10/20/22 @ 12:19 by Allyson Washington DO) Alcohol intake: never Substance Use Type: Opiates Advance Directives: No Advance Directives Information Provided: No Physical Exam Vital Signs: Appearance: unresponsive, ongoing CPR Eyes: Pupils fixed and dilated ENT: Pharynx normal. bloody secretions seen in ET tube but scant Neck: Normal inspection. Neck supple. CVS: absent heart sounds, no pulses felt - pulses felt only during chest compressions Respiratory: lungs sounds heard with bagging both R and left but otherwise no spontaneous respirations. Abdomen: Soft no signs of trauma Skin: skin cold dusky and pale Extremities: cold dusky fingers and toes are purple Neuro: no response to painful stimuli, no movements, fixed and dilated pupils Course Course Course Narrative: 1156am 1 hour of CPR without ROSC and no spontaneous respirations, absent heart sounds, no cardiac activity on US - PEA/asystole on tele, no corneal reflex fixed and dilated with 1 hour of CPR and no ROSC resuscitative efforts deemed futile and stopped. time of 1156am - family and ME notifed. 1212 call to ME - discussed with Danisha Moore accepted they will reach out to police Medical Decision Making Medical Decision Making MDM Narrative: 57 yo female with hx of renal calculi, ESBL UTI - was on chronic oxycodone for fibromyalgia but as of note 09/18 she was being weaned off and had opiate overdose requring bagging and IV narcan at this time she comes in with 55 min of EMS CPR and no ROSC - in ED resuscitative efforts continued but no response and 1 hour of CPR it was deemed futile without any cardiac activity or neurologic activity - ME and family to be notified. RNs aware. Unsure if this was another overdose of what occurred, no obvious trauma noted on exam. Police to be notified by ME. Differential Diagnosis Differential Diagnoses: The differential diagnosis associated with the presentation includes cardiac arrythmia, overdose, infection Consult Healthcare Provider Management of the patient was discussed with: Core Paster (ME will take jurisdiction) Independent Historian Clinical information obtained from an independent historian. History obtained from or confirmed by: Spouse External Record Review External record reviewed: Inpatient record Procedures Procedure Narrative Procedure Narrative: cardiac US - no organized cardiac activity on arrival but some fluttering of valves PEA on arrival cardiac US 1156 - no organized activity Critical Care Time Critical Care Time Critical Care Time: Yes Total Critical Care Time: 31 Attestation: discussion with family, ME, review of notes I attest to this time spent taking care of the patient Discharge Plan Discharge Clinical Impression: Cardiac arrest Patient Disposition: Interventions: Organ Donor Nursing Doc/Post Mortem care Last Done: 10/20/22 12:38 Discharge Date/Time: 10/20/22 13:46 Date/Time: 10/20/22 11:56
--- NOTE | 2022-10-20 12:20 | PC.NURSE ---
ME accepted patients case
--- NOTE | 2022-10-20 12:27 | MHC.EDTECH ---
Family states they want to use [facility] in [place]
--- NOTE | 2022-10-20 12:35 | PC.NURSE ---
contacted [facility] on patient, pt is potential referral, referral number is [id number]. patient family left next of kin information as follows - Linnea Jeevan (aunt) [phone] , Rosalino Diamond (Brother) [phone] , Bhumikahailey Kumar (mother) [phone]
== END 2022-10-20 13:46 | disposition expired ==
PROVIDERS: Emergency Provider Emergency Medicine; PCP Internal Medicine
DX: I46.9 Cardiac arrest, cause unspecified (principal); I10 Essential (primary) hypertension; Z90.5 Acquired absence of kidney; M79.7 Fibromyalgia; Z79.891 Long term (current) use of opiate analgesic; Z87.440 Personal history of urinary (tract) infections
CPT/HCPCS: 99282; 99284; J0171